=== PATIENT | female | born 1935 | race African-American/Black ===

== ENCOUNTER 2016-09-09 10:44 | Emergency (ER) | payer MEDICARE, MEDICAID ==
[~2016-09-09] VITALS: Ht 165.1 cm; Wt 64.0 kg
[~2016-09-09 10:44] MED LIST: ASPI-1035 PO
[2016-09-09] MEDS ORDERED: KETOROLAC 60MG/2ML VIAL IM ONE (11:45)
[2016-09-09 14:14] VITALS: BP 163/73
== END 2016-09-09 14:15 | disposition home or self-care (01) ==
LOC: ER 11:05
DX: G62.9 Polyneuropathy, unspecified (principal); G89.29 Other chronic pain; E11.9 Type 2 diabetes mellitus without complications; I10 Essential (primary) hypertension; M79.671 Pain in right foot; Z79.82 Long term (current) use of aspirin
CPT/HCPCS: 99283; J1885

== ENCOUNTER 2016-09-22 14:46 | Observation (INO) | payer MEDICARE, MEDICAID ==
[~2016-09-22] VITALS: Ht 165.1 cm; Wt 48.5 kg
[2016-09-22] MEDS ORDERED: ASPIRIN 81MG TABLET PO ONE (16:15)
[2016-09-22 16:51] LABS: BASOPHILS % 0.2 % (0.0-2.0); EOSINOPHILS % 0.2 % (0.0-5.0); HEMATOCRIT. 34.9 % (36.0-48.0); HEMOGLOBIN. 11.5 g/dL (12.0-16.0); LYMPHOCYTES % 8.3 % (20.0-50.0); MEAN CORPUSCULAR HEMOGLOBIN 27.6 pg (28.0-32.0); MEAN CORPUSCULAR HGB CONC 32.8 g/dL (31.0-37.0); MEAN PLATELET VOLUME 9.5 fl (7.4-10.4); MONOCYTES % 7.2 % (2.0-8.0); NEUTROPHILS % 84.1 % (40.0-76.0); PLATELET 184 x1000/uL (130-400); RED BLOOD CELL COUNT 4.15 mill/uL (4.2-5.4); RED CELL DISTRIBUTION WIDTH 13.8 % (11.6-14.6); WHITE BLOOD COUNT 15.4 x1000/uL (4.5-11.0)
[2016-09-22 16:52] LABS: INR 1.1; PROTHROMBIN TIME 11.8 sec
[2016-09-22 16:53] LABS: ANION GAP 16; CALCIUM 8.7 mg/dL (8.5-10.1); CARBON DIOXIDE 25 mEq/L (21-32); CHLORIDE 103 mEq/L (98-107); INDEX HEMOLYSI 1 (1-3); INDEX ICTERIC 1 (1-4); INDEX LIPEMIC 1 (1-3); UREA NITROGEN BLOOD 21 mg/dL (7-21)
[2016-09-22 17:00] LABS: ALANINE AMINOTRANSFERASE 24 IU/L (13-61); TROPONIN I < 0.02 ng/mL (0.00-0.04); eGFR > 60 mL/min (>60)
[2016-09-22 17:15] LABS: NT PRO B-TYPE NATRIURETIC PEP 149 pg/mL (5-125)
[2016-09-22 22:00] VITALS: BP 157/90
[2016-09-22] MEDS ORDERED: TRAM50TA3 PO (23:15)
[2016-09-22] MEDS ORDERED: BENA40TA3 PO (23:15)
[2016-09-22] MEDS ORDERED: VALS160T2 PO (23:15)
[2016-09-22] MEDS ORDERED: TIMO15DR12 EACHEYE (23:15)
[2016-09-22] MEDS ORDERED: AMLO10TA80 PO (23:15)
[2016-09-22] MEDS ORDERED: ATOR20TA65 PO (23:15)
[2016-09-22] MEDS ORDERED: METF850T2 PO (23:15)
[2016-09-22] MEDS ORDERED: CLON0.2T PO (23:15)
[2016-09-22] MEDS ORDERED: PREG50CA PO (23:15)
[2016-09-22] MEDS ORDERED: LATA2.5D2 EACHEYE (23:15)
[2016-09-22] MEDS ORDERED: OXYC-100 PO (23:15)
[2016-09-22] MEDS ORDERED: DEXTROSE 50% WATER 50ML SYRINGE IV PRN (23:30)
[2016-09-22] MEDS ORDERED: TRAMADOL 50MG TABLET PO PRN (23:30)
[2016-09-22] MEDS: OXYCODONE HCL/ACETAMINOPHEN 5/325MG TABLET PO PRN (23:54)
[2016-09-23 01:04] LABS: CREATINE KINASE 51 IU/L (26-192); CREATINE KINASE MB FRACTION 1.3 ng/mL (0.5-3.6); INDEX HEMOLYSI 1 (1-3); TROPONIN I < 0.02 ng/mL (0.00-0.04)
[2016-09-23] MEDS ORDERED: LATANOPROST 0.005% OPHTH DROPS 2.5ML EACHEYE SCH ×2 (01:15→21:00)
[2016-09-23] MEDS ORDERED: CEFTRIAXONE 1 G PREMIX 50 ML IV SCH (02:00)
[2016-09-23 02:19] LABS: CLARITY URINE CLEAR (CLEAR); COLOR URINE YELLOW (YELLOW); GLUCOSE URINE 2+ (NEGATIVE); KETONES URINE NEGATIVE (NEGATIVE); LEUKOCYTE ESTERASE URINE NEGATIVE (NEGATIVE); NITRITE URINE NEGATIVE (NEGATIVE); OCCULT BLOOD URINE NEGATIVE (NEGATIVE); PROTEIN URINE NEGATIVE (NEGATIVE)
[2016-09-23] MEDS ORDERED: MORPHINE SULFATE 2 MG/ML CPJ (NOT FOR IM USE) IV PRN (03:15)
[2016-09-23 03:20] VITALS: BP 162/102
[2016-09-23] MEDS: CLONIDINE 0.2MG TABLET PO PRN ×2 (03:23→14:20)
[2016-09-23 04:02] LABS: SQUAMOUS EPITHELIAL CELL URINE NONE SEEN /lpf (RARE/1+)
[2016-09-23 04:04] LABS: WBC URINE 0-2 /hpf (0-2)
[2016-09-23 04:05] LABS: BACTERIA URINE NONE SEEN; RBC URINE NONE SEEN /hpf (0-2)
[2016-09-23 06:17] LABS: BASOPHILS % 0.3 % (0.0-2.0); EOSINOPHILS % 1.7 % (0.0-5.0); HEMATOCRIT. 32.1 % (36.0-48.0); HEMOGLOBIN. 10.8 g/dL (12.0-16.0); LYMPHOCYTES % 27.2 % (20.0-50.0); MEAN CORPUSCULAR HEMOGLOBIN 28.1 pg (28.0-32.0); MEAN CORPUSCULAR HGB CONC 33.6 g/dL (31.0-37.0); MEAN CORPUSCULAR VOLUME 83.8 fL (81.0-99.0); MEAN PLATELET VOLUME 9.2 fl (7.4-10.4); MONOCYTES % 8.6 % (2.0-8.0); NEUTROPHILS % 62.2 % (40.0-76.0); PLATELET 160 x1000/uL (130-400); RED BLOOD CELL COUNT 3.83 mill/uL (4.2-5.4); RED CELL DISTRIBUTION WIDTH 13.8 % (11.6-14.6); WHITE BLOOD COUNT 9.4 x1000/uL (4.5-11.0)
[2016-09-23] MEDS: BLOOD SUGAR DIAGNOSTIC STRIP TEST SCH ×2 (06:32→12:27)
[2016-09-23] MEDS: INSULIN LISPRO 100 UNITS/ML SUBCUT SCH ×2 (06:37→12:15)
[2016-09-23 07:47] LABS: ALANINE AMINOTRANSFERASE 19 IU/L (13-61); ALBUMIN 3.5 g/dL (3.4-5.0); ANION GAP 11; CALCIUM 8.6 mg/dL (8.5-10.1); CARBON DIOXIDE 29 mEq/L (21-32); CHLORIDE 104 mEq/L (98-107); HDL CHOLESTEROL 62 mg/dL (40-59); INDEX HEMOLYSI 1 (1-3); INDEX ICTERIC 1 (1-4); INDEX LIPEMIC 1 (1-3); LDL CHOLESTEROL 40 mg/dL (5-100); TRIGLYCERIDE 83 mg/dL (0-150); UREA NITROGEN BLOOD 18 mg/dL (7-21); eGFR > 60 mL/min (>60)
[2016-09-23 08:00] VITALS: BP 116/81
[2016-09-23] MEDS ORDERED: ENOXAPARIN 40MG/0.4ML SYR SUBCUT SCH (09:00)
[2016-09-23] MEDS ORDERED: TIMOLOL MALEATE 0.5% OPHTH DROPS 5ML EACHEYE SCH (09:00)
[2016-09-23] MEDS: LOSARTAN POTASSIUM 100 MG TABLET PO SCH ×2 (09:00→14:20)
[2016-09-23] MEDS ORDERED: AMLODIPINE 10MG TABLET PO SCH (09:00)
[2016-09-23] MEDS ORDERED: ASPIRIN 81MG EC TABLET PO SCH (09:00)
[2016-09-23] MEDS ORDERED: METFORMIN HCL 850MG TABLET PO SCH (09:00)
[2016-09-23] MEDS ORDERED: PREGABALIN 50 MG CAPSULE PO SCH (09:00)
[2016-09-23] MEDS: OXYCODONE HCL/ACETAMINOPHEN 5/325MG TABLET PO PRN (09:50)
[2016-09-23 09:57] LABS: CREATINE KINASE 40 IU/L (26-192); CREATINE KINASE MB FRACTION 1.1 ng/mL (0.5-3.6); INDEX HEMOLYSI 1 (1-3); TROPONIN I < 0.02 ng/mL (0.00-0.04)
[2016-09-23 12:00] VITALS: BP 157/71
[2016-09-23 14:19] VITALS: BP 169/77
[2016-09-23 14:55] VITALS: BP 157/71
[2016-09-23] MEDS ORDERED: ATORVASTATIN CALCIUM 20MG TABLET PO SCH (17:00)
== END 2016-09-23 17:05 | disposition home or self-care (01) ==
LOC: ER 15:27 → INTOOBSV 18:26 → 5WST 18:26
PROVIDERS: ADMIT Internal Medicine; ATTEND Internal Medicine
DX: R07.89 Other chest pain (principal); I10 Essential (primary) hypertension; E10.42 Type 1 diabetes mellitus with diabetic polyneuropathy; E10.65 Type 1 diabetes mellitus with hyperglycemia; E78.00 Pure hypercholesterolemia, unspecified; E78.5 Hyperlipidemia, unspecified; H40.9 Unspecified glaucoma
CPT/HCPCS: 36415; 71010; 80053; 80061; 81001; 82550; 82553; 82962; 83880; 84484; 85025; 85610; 87040; 87086; 93005; 93306; 96365; 96372; 96375; 99285; G0378; J0696; J1650; J1815; J2270; J7050

== ENCOUNTER 2016-10-27 20:15 | Emergency (ER) | payer MEDICARE, MEDICAID ==
[~2016-10-27] VITALS: Ht 162.6 cm; Wt 52.0 kg
[~2016-10-27 20:15] MED LIST changes: +AMLO10TA80 PO; -ASPI-1035 PO; +ASPI-1159 PO; +ATOR20TA65 PO; +BENA40TA3 PO; +CLON0.2T PO; +LATA2.5D2 EACHEYE; +METF850T2 PO; +OXYC-100 PO; +PREG50CA PO; +TIMO15DR12 EACHEYE; +TRAM50TA3 PO; +VALS160T2 PO
[2016-10-27] MEDS ORDERED: KETOROLAC 60MG/2ML VIAL IM ONE (22:30)
[2016-10-27 22:50] LABS: BASOPHILS % 0.7 % (0.0-2.0); EOSINOPHILS % 1.4 % (0.0-5.0); HEMATOCRIT. 38.5 % (36.0-48.0); HEMOGLOBIN. 12.8 g/dL (12.0-16.0); LYMPHOCYTES % 32.7 % (20.0-50.0); MEAN CORPUSCULAR HEMOGLOBIN 28.3 pg (28.0-32.0); MEAN CORPUSCULAR VOLUME 85.2 fL (81.0-99.0); MEAN PLATELET VOLUME 9.1 fl (7.4-10.4); MONOCYTES % 7.7 % (2.0-8.0); NEUTROPHILS % 57.5 % (40.0-76.0); PLATELET 225 x1000/uL (130-400); RED BLOOD CELL COUNT 4.51 mill/uL (4.2-5.4); RED CELL DISTRIBUTION WIDTH 14.2 % (11.6-14.6)
[2016-10-27 22:53] LABS: CHLORIDE 102 mEq/L (98-107)
[2016-10-27 23:03] LABS: CARBON DIOXIDE 31 mEq/L (21-32)
[2016-10-28 02:30] VITALS: BP 185/65
== END 2016-10-28 02:30 | disposition home or self-care (01) ==
LOC: ER 20:49
DX: I10 Essential (primary) hypertension (principal); G62.9 Polyneuropathy, unspecified; E11.9 Type 2 diabetes mellitus without complications; Z79.82 Long term (current) use of aspirin; Z79.899 Other long term (current) drug therapy
CPT/HCPCS: 36415; 80053; 85025; 96372; 99284; J1885

== ENCOUNTER 2016-12-08 20:09 | Emergency (ER) | payer MEDICARE, MEDICAID ==
[~2016-12-08] VITALS: Ht 162.6 cm; Wt 45.4 kg
[2016-12-08] MEDS ORDERED: KETOROLAC 60MG/2ML VIAL IM ONE (20:30)
[2016-12-08 21:20] VITALS: BP 142/62
== END 2016-12-08 21:29 | disposition home or self-care (01) ==
LOC: ER 20:24
DX: E11.42 Type 2 diabetes mellitus with diabetic polyneuropathy (principal); I10 Essential (primary) hypertension; Z79.82 Long term (current) use of aspirin
CPT/HCPCS: 82962; 96372; 99283; J1885

== ENCOUNTER 2016-12-12 10:31 | Emergency (ER) | payer MEDICARE, MEDICAID ==
[~2016-12-12] VITALS: Ht 170.2 cm; Wt 55.0 kg
[2016-12-12] MEDS ORDERED: KETOROLAC 60MG/2ML VIAL IM ONE (11:15)
[2016-12-12 12:01] VITALS: BP 134/28
== END 2016-12-12 12:01 | disposition home or self-care (01) ==
LOC: ER 11:04
DX: E11.40 Type 2 diabetes mellitus with diabetic neuropathy, unspecified (principal); G89.29 Other chronic pain; I10 Essential (primary) hypertension
CPT/HCPCS: 96372; 99283; J1885

== ENCOUNTER 2016-12-12 12:49 | Emergency (ER) | payer MEDICARE, MEDICAID ==
[~2016-12-12] VITALS: Ht 165.1 cm; Wt 54.0 kg
[2016-12-12 13:05] VITALS: BP 171/81
== END 2016-12-12 17:26 | disposition left against medical advice (07) ==
LOC: ER 17:13
DX: Z53.21 Procedure and treatment not carried out due to patient leaving prior to being seen by health care provider (principal)

== ENCOUNTER 2016-12-14 19:35 | Emergency (ER) | payer MEDICARE, MEDICAID ==
[~2016-12-14] VITALS: Ht 167.6 cm; Wt 54.0 kg
[2016-12-14] MEDS ORDERED: KETOROLAC 15MG/ML VIAL IM ONE (20:15)
[2016-12-14] MEDS ORDERED: IBUPROFEN 600MG TABLET PO ONE (20:15)
[2016-12-14 20:36] VITALS: BP 159/42
== END 2016-12-14 20:51 | disposition home or self-care (01) ==
LOC: ER 20:14
DX: E11.40 Type 2 diabetes mellitus with diabetic neuropathy, unspecified (principal); I10 Essential (primary) hypertension; Z79.82 Long term (current) use of aspirin
CPT/HCPCS: 96372; 99283; J1885

== ENCOUNTER 2016-12-15 09:33 | Emergency (ER) | payer MEDICARE, MEDICAID ==
[~2016-12-15] VITALS: Ht 160 cm; Wt 40.0 kg
[2016-12-15] MEDS ORDERED: OXYCODONE HCL/ACETAMINOPHEN 5/325MG TABLET PO ONE ×2 (10:30→15:45)
[2016-12-15] MEDS ORDERED: KETOROLAC 15MG/ML VIAL IV ONE (12:15)
[2016-12-15 15:59] VITALS: BP 168/90
== END 2016-12-15 18:23 | disposition home or self-care (01) ==
LOC: ER 10:08
DX: E11.42 Type 2 diabetes mellitus with diabetic polyneuropathy (principal); G89.29 Other chronic pain; M79.672 Pain in left foot; M79.671 Pain in right foot
CPT/HCPCS: 96374; 99284; J1885

== ENCOUNTER 2016-12-25 12:39 | Emergency (ER) | payer MEDICARE, MEDICAID ==
[~2016-12-25] VITALS: Ht 165.1 cm; Wt 70.0 kg
[2016-12-25] MEDS ORDERED: TRAMADOL 50MG TABLET PO ONE (15:00)
[2016-12-25 16:00] VITALS: BP 155/66
== END 2016-12-25 16:20 | disposition home or self-care (01) ==
LOC: ER 13:01
DX: G62.9 Polyneuropathy, unspecified (principal); I10 Essential (primary) hypertension; E78.00 Pure hypercholesterolemia, unspecified; E11.9 Type 2 diabetes mellitus without complications
CPT/HCPCS: 99283

== ENCOUNTER 2017-01-16 22:59 | Emergency (ER) | payer MEDICARE, MEDICAID ==
[~2017-01-16] VITALS: Ht 162.6 cm; Wt 43.0 kg
[2017-01-17] MEDS ORDERED: TRAMADOL 50MG TABLET PO ONE ×2 (00:45→06:45)
[2017-01-17] MEDS ORDERED: KETOROLAC 60MG/2ML VIAL IM ONE (00:45)
[2017-01-17 11:22] VITALS: BP 160/67
== END 2017-01-17 14:07 | disposition home or self-care (01) ==
LOC: ER 01-17 00:06
DX: E11.40 Type 2 diabetes mellitus with diabetic neuropathy, unspecified (principal); I10 Essential (primary) hypertension; Z79.82 Long term (current) use of aspirin
CPT/HCPCS: 96372; 99283; J1885

== ENCOUNTER 2017-01-18 13:21 | Emergency (ER) | payer MEDICARE, MEDICAID ==
[~2017-01-18] VITALS: Ht 160 cm; Wt 50.0 kg
[2017-01-18] MEDS ORDERED: SODIUM CHLORIDE 0.9% 10ML VIAL ONE (14:20)
[2017-01-18] MEDS ORDERED: IOHEXOL-300 100 ML BOTTLE ONE (14:20)
[2017-01-18] MEDS ORDERED: SODIUM CHLORIDE 0.9% 1,000 ML IV ONE (16:04)
[2017-01-18 16:30] LABS: CHLORIDE 96 mEq/L (98-107)
[2017-01-18 16:34] LABS: CARBON DIOXIDE 23 mEq/L (21-32)
[2017-01-18 16:35] LABS: HEMATOCRIT. 35.9 % (36.0-48.0); HEMOGLOBIN. 11.9 g/dL (12.0-16.0); MEAN CORPUSCULAR VOLUME 84.8 fL (81.0-99.0); PLATELET 194 x1000/uL (130-400); RED BLOOD CELL COUNT 4.24 mill/uL (4.2-5.4); RED CELL DISTRIBUTION WIDTH 13.5 % (11.6-14.6)
[2017-01-18 16:38] LABS: INR 1.1; PROTHROMBIN TIME 11.6 sec (9.4-11.6)
[2017-01-18 17:14] LABS: CLARITY URINE CLEAR (CLEAR); COLOR URINE YELLOW (YELLOW); GLUCOSE URINE 1+ (NEGATIVE); KETONES URINE 2+ (NEGATIVE); LEUKOCYTE ESTERASE URINE NEGATIVE (NEGATIVE); NITRITE URINE NEGATIVE (NEGATIVE); OCCULT BLOOD URINE NEGATIVE (NEGATIVE); PH URINE 6.5 (4.5-8.0); PROTEIN URINE TRACE (NEGATIVE); SPECIFIC GRAVITY URINE 1.013 (1.005-1.030); UROBILINOGEN URINE 0.2 E.U./dL (0.2-1.0)
[2017-01-18 17:17] LABS: PLATELET ESTIMATE NORMAL
[2017-01-18] MEDS ORDERED: POTASSIUM CHLORIDE 20MEQ TABLET SR PO ONE (20:30)
[2017-01-19 02:05] VITALS: BP 120/68
== END 2017-01-19 02:06 | disposition home or self-care (01) ==
LOC: ER 13:35
DX: R10.30 Lower abdominal pain, unspecified (principal); I10 Essential (primary) hypertension; E11.9 Type 2 diabetes mellitus without complications; Z79.82 Long term (current) use of aspirin
CPT/HCPCS: 36415; 74177; 80053; 81001; 83690; 85025; 85610; 96360; 96361; 99285; A4216; Q9967; J7030

== ENCOUNTER 2017-01-23 07:52 | Inpatient (IN) | payer MEDICARE, MEDICAID ==
[~2017-01-23] VITALS: Ht 170.2 cm; Wt 43.1 kg
[2017-01-23] MEDS ORDERED: ONDANSETRON HCL 4MG/2ML VIAL IV STA (08:07)
[2017-01-23] MEDS ORDERED: MORPHINE SULFATE 4 MG/ML CPJ (NOT FOR IM USE) IV STA (08:07)
[2017-01-23] MEDS ORDERED: SODIUM CHLORIDE 0.9% 1,000 ML IV ONE (08:07)
[2017-01-23 08:32] LABS: PROTHROMBIN TIME 10.7 sec (9.4-11.6)
[2017-01-23 08:36] LABS: CARBON DIOXIDE 29 mEq/L (21-32); CHLORIDE 97 mEq/L (98-107)
[2017-01-23 08:41] LABS: BASOPHILS % 0.3 % (0.0-2.0); EOSINOPHILS % 0.9 % (0.0-5.0); HEMATOCRIT. 36.5 % (36.0-48.0); HEMOGLOBIN. 12.4 g/dL (12.0-16.0); LYMPHOCYTES % 20.4 % (20.0-50.0); MEAN CORPUSCULAR HEMOGLOBIN 28.7 pg (28.0-32.0); MEAN CORPUSCULAR VOLUME 84.5 fL (81.0-99.0); MEAN PLATELET VOLUME 9.3 fl (7.4-10.4); MONOCYTES % 8.6 % (2.0-8.0); NEUTROPHILS % 69.8 % (40.0-76.0); PLATELET 221 x1000/uL (130-400); RED BLOOD CELL COUNT 4.32 mill/uL (4.2-5.4); RED CELL DISTRIBUTION WIDTH 13.5 % (11.6-14.6)
[2017-01-23 08:43] LABS: TROPONIN I < 0.02 ng/mL (0.00-0.04)
[2017-01-23 09:22] LABS: GLUCOSE URINE TRACE (NEGATIVE); KETONES URINE NEGATIVE (NEGATIVE); LEUKOCYTE ESTERASE URINE 3+ (NEGATIVE); NITRITE URINE POSITIVE (NEGATIVE); OCCULT BLOOD URINE 3+ (NEGATIVE); PROTEIN URINE TRACE (NEGATIVE); SPECIFIC GRAVITY URINE 1.008 (1.005-1.030); UROBILINOGEN URINE 0.2 E.U./dL (0.2-1.0)
[2017-01-23 09:30] LABS: CLARITY URINE CLOUDY (CLEAR); COLOR URINE PALE YELLOW (YELLOW)
[2017-01-23] MEDS ORDERED: CEFTRIAXONE 1 G PREMIX 50 ML IV ONE (11:15)
[2017-01-23] MEDS ORDERED: SODIUM CHLORIDE 0.9% 10ML VIAL ONE (11:45)
[2017-01-23] MEDS ORDERED: IOHEXOL-300 100 ML BOTTLE ONE (11:45)
[2017-01-23] MEDS ORDERED: ACETAMINOPHEN 325MG TABLET PO PRN (14:15)
[2017-01-23] MEDS ORDERED: ONDANSETRON HCL 4MG/2ML VIAL IV PRN (14:15)
[2017-01-23] MEDS ORDERED: IPRATROPIUM/ALBUTEROL 0.5-3(2.5)MG/3ML NEB INH PRN (14:15)
[2017-01-23] MEDS ORDERED: CLONIDINE 0.1MG TABLET PO PRN (14:15)
[2017-01-23 16:35] VITALS: BP 150/58
[2017-01-23 16:46] LABS: CARBON DIOXIDE 31 mEq/L (21-32); CHLORIDE 101 mEq/L (98-107)
[2017-01-23] MEDS ORDERED: ENOXAPARIN 30MG/0.3ML SYR SUBCUT SCH ×2 (17:00→22:30)
[2017-01-23] MEDS ORDERED: SODIUM CHLORIDE 0.45% 1,000 ML IV SCH (17:00)
[2017-01-23] MEDS ORDERED: ROCEPHIN IVPB XX SCH (17:15)
[2017-01-23 20:00] VITALS: BP_SYST 166; BP_SYST 167; BP_DIAS 57; BP_DIAS 74
[2017-01-23] MEDS: HYDROCODONE/ACETAMINOPHEN 5/325MG TABLET PO PRN (21:27)
[2017-01-24] VITALS (7 sets, daily range): BP systolic 137–179; BP diastolic 47–65
[2017-01-24] MEDS: SODIUM CHLORIDE 0.45% 1,000 ML IV SCH ×2 (00:07→11:50)
[2017-01-24 01:29] LABS: CREATINE KINASE 27 IU/L (26-192)
[2017-01-24 01:30] LABS: TROPONIN I < 0.02 ng/mL (0.00-0.04)
[2017-01-24] MEDS: HYDROCODONE/ACETAMINOPHEN 5/325MG TABLET PO PRN ×4 (01:37→20:25)
[2017-01-24] MEDS ORDERED: DEXTROSE 50% WATER 50ML SYRINGE IV PRN (07:15)
[2017-01-24] MEDS: BLOOD SUGAR DIAGNOSTIC STRIP TEST SCH ×3 (07:20→17:20)
[2017-01-24] MEDS: INSULIN LISPRO 100 UNITS/ML SUBCUT SCH ×3 (08:59→19:01)
[2017-01-24 09:59] LABS: BASOPHILS % 0.4 % (0.0-2.0); EOSINOPHILS % 1.2 % (0.0-5.0); HEMATOCRIT. 30.8 % (36.0-48.0); HEMOGLOBIN. 10.4 g/dL (12.0-16.0); LYMPHOCYTES % 21.1 % (20.0-50.0); MEAN CORPUSCULAR HEMOGLOBIN 28.6 pg (28.0-32.0); MEAN CORPUSCULAR VOLUME 84.4 fL (81.0-99.0); MEAN PLATELET VOLUME 8.8 fl (7.4-10.4); MONOCYTES % 7.4 % (2.0-8.0); NEUTROPHILS % 69.9 % (40.0-76.0); PLATELET 191 x1000/uL (130-400); RED BLOOD CELL COUNT 3.65 mill/uL (4.2-5.4); RED CELL DISTRIBUTION WIDTH 13.4 % (11.6-14.6)
[2017-01-24 10:34] LABS: T4 FREE 1.22 ng/dL (0.76-1.46); TROPONIN I 0.02 ng/mL (0.00-0.04)
[2017-01-24] MEDS ORDERED: CEFTRIAXONE 1 G PREMIX 50 ML IV SCH (11:00)
== END 2017-01-24 22:00 | disposition home health service (06) | DRG 690 ==
LOC: ER 09:31 → CANRESERV 10:05 → ENRESERV 10:05 → 6EST 11:32 → EDBEDREQSVC 11:34 → EDBEDREQTM 11:34 → EDBEDREQ 11:34 → ENRESERV 15:26 → CANBEDREQ 16:14
PROVIDERS: ADMIT Internal Medicine; ATTEND Internal Medicine
DX: N39.0 Urinary tract infection, site not specified (principal); F03.90 Unspecified dementia, unspecified severity, without behavioral disturbance, psychotic disturbance, mood disturbance, and anxiety; E11.9 Type 2 diabetes mellitus without complications; D64.9 Anemia, unspecified; I10 Essential (primary) hypertension; H40.9 Unspecified glaucoma; Z79.84 Long term (current) use of oral hypoglycemic drugs; Z79.82 Long term (current) use of aspirin; Z79.899 Other long term (current) drug therapy
CPT/HCPCS: 36415; 51702; 71010; 74177; 80048; 80053; 80061; 81001; 82550; 82962; 83605; 83690; 83880; 84439; 84443; 84484; 85025; 85610; 87040; 87077; 87086; 87186; 93005; 96361; 96365; 96375; 97162; 97530; 99285; A4216; C1893; J0696; J1650; J1815; J2270; J2405; J7030; Q9967; A4315

== ENCOUNTER 2017-01-25 22:47 | Emergency (ER) | payer MEDICARE, MEDICAID ==
[~2017-01-25] VITALS: Ht 154.9 cm; Wt 38.0 kg
[2017-01-26] MEDS ORDERED: HYDROCODONE/ACETAMINOPHEN 5/325MG TABLET PO ONE (00:30)
[2017-01-26 05:04] VITALS: BP 138/65
== END 2017-01-26 11:25 | disposition home or self-care (01) ==
LOC: ER 23:00
DX: E11.40 Type 2 diabetes mellitus with diabetic neuropathy, unspecified (principal); F03.90 Unspecified dementia, unspecified severity, without behavioral disturbance, psychotic disturbance, mood disturbance, and anxiety
CPT/HCPCS: 99283

== ENCOUNTER 2017-02-03 00:08 | Emergency (ER) | payer MEDICARE, MEDICAID ==
[~2017-02-03] VITALS: Ht 162.6 cm; Wt 46.0 kg
[2017-02-03] MEDS ORDERED: ONDANSETRON HCL 4MG/2ML VIAL IV STA (01:00)
[2017-02-03] MEDS ORDERED: KETOROLAC 30MG/ML VIAL IV STA (01:00)
[2017-02-03] MEDS ORDERED: SODIUM CHLORIDE 0.9% 1,000 ML IV ONE (01:00)
[2017-02-03] MEDS ORDERED: TRAMADOL 50MG TABLET PO ONE (01:15)
[2017-02-03 01:27] LABS: BASOPHILS % 0.2 % (0.0-2.0); EOSINOPHILS % 0.1 % (0.0-5.0); HEMATOCRIT. 38.4 % (36.0-48.0); HEMOGLOBIN. 12.8 g/dL (12.0-16.0); LYMPHOCYTES % 13.4 % (20.0-50.0); MEAN CORPUSCULAR HEMOGLOBIN 28.4 pg (28.0-32.0); MEAN PLATELET VOLUME 8.4 fl (7.4-10.4); MONOCYTES % 6.2 % (2.0-8.0); NEUTROPHILS % 80.1 % (40.0-76.0); PLATELET 269 x1000/uL (130-400); RED BLOOD CELL COUNT 4.52 mill/uL (4.2-5.4); RED CELL DISTRIBUTION WIDTH 13.8 % (11.6-14.6)
[2017-02-03 01:30] LABS: CHLORIDE 95 mEq/L (98-107)
[2017-02-03 01:32] LABS: PROTHROMBIN TIME 10.4 sec (9.4-11.6)
[2017-02-03 01:39] LABS: CARBON DIOXIDE 31 mEq/L (21-32)
[2017-02-03 03:31] LABS: CLARITY URINE CLOUDY (CLEAR); COLOR URINE YELLOW (YELLOW); GLUCOSE URINE 3+ (NEGATIVE); KETONES URINE 1+ (NEGATIVE); LEUKOCYTE ESTERASE URINE NEGATIVE (NEGATIVE); NITRITE URINE NEGATIVE (NEGATIVE); OCCULT BLOOD URINE NEGATIVE (NEGATIVE); PROTEIN URINE NEGATIVE (NEGATIVE); SPECIFIC GRAVITY URINE 1.026 (1.005-1.030)
[2017-02-03 07:45] VITALS: BP 134/53
== END 2017-02-03 08:18 | disposition home or self-care (01) ==
LOC: ER 00:15
DX: M79.605 Pain in left leg (principal); M79.604 Pain in right leg; G89.29 Other chronic pain; K59.00 Constipation, unspecified; E11.9 Type 2 diabetes mellitus without complications; I10 Essential (primary) hypertension; D72.829 Elevated white blood cell count, unspecified; Z79.82 Long term (current) use of aspirin
CPT/HCPCS: 36415; 80053; 81001; 82962; 85025; 85610; 96361; 96374; 96375; 99285; J1885; J2405; J7030

== ENCOUNTER 2017-04-21 23:37 | Emergency (ER) | payer MEDICARE, MEDICAID ==
[~2017-04-21] VITALS: Ht 167.6 cm; Wt 59.0 kg
[2017-04-22 00:34] LABS: BASOPHILS % 0.5 % (0.0-2.0); EOSINOPHILS % 2.4 % (0.0-5.0); HEMATOCRIT. 32.7 % (36.0-48.0); HEMOGLOBIN. 10.9 g/dL (12.0-16.0); LYMPHOCYTES % 16.9 % (20.0-50.0); MEAN CORPUSCULAR HEMOGLOBIN 29.7 pg (28.0-32.0); MEAN PLATELET VOLUME 9.1 fl (7.4-10.4); MONOCYTES % 11.1 % (2.0-8.0); NEUTROPHILS % 69.1 % (40.0-76.0); PLATELET 196 x1000/uL (130-400); RED BLOOD CELL COUNT 3.68 mill/uL (4.2-5.4); RED CELL DISTRIBUTION WIDTH 14.9 % (11.6-14.6)
[2017-04-22 00:40] LABS: INR 1.1; PROTHROMBIN TIME 11.2 sec (9.4-11.6)
[2017-04-22 00:50] LABS: CARBON DIOXIDE 27 mEq/L (21-32); CHLORIDE 106 mEq/L (98-107); ETHANOL BLOOD < 10 mg/dL; TROPONIN I < 0.02 ng/mL (0.00-0.04)
[2017-04-22 02:48] LABS: CLARITY URINE CLEAR (CLEAR); COLOR URINE YELLOW (YELLOW); GLUCOSE URINE TRACE (NEGATIVE); KETONES URINE NEGATIVE (NEGATIVE); LEUKOCYTE ESTERASE URINE 1+ (NEGATIVE); NITRITE URINE POSITIVE (NEGATIVE); OCCULT BLOOD URINE NEGATIVE (NEGATIVE); PROTEIN URINE NEGATIVE (NEGATIVE); SPECIFIC GRAVITY URINE 1.014 (1.005-1.030); UROBILINOGEN URINE 0.2 E.U./dL (0.2-1.0)
[2017-04-22 02:59] LABS: *AMPHETAMINES SCREEN URINE NEGATIVE (NEGATIVE); *BARBITURATES SCREEN URINE NEGATIVE (NEGATIVE); *BENZODIAZEPINES SCREEN URINE NEGATIVE (NEGATIVE); *COCAINE SCREEN URINE NEGATIVE (NEGATIVE); CANNABINOID URINE SCREEN NEGATIVE (NEGATIVE); METHADONE URINE SCREEN NEGATIVE (NEGATIVE); OPIATES URINE SCREEN NEGATIVE (NEGATIVE); PHENCYCLIDINE URINE SCREEN NEGATIVE (NEGATIVE)
[2017-04-22] MEDS ORDERED: CEFTRIAXONE SODIUM 1 G/VIAL IM ONE (03:15)
[2017-04-22] MEDS ORDERED: CEFTRIAXONE 1 G PREMIX 50 ML IV ONE (03:30)
[2017-04-22] MEDS ORDERED: CLONIDINE 0.2MG TABLET PO ONE (04:45)
[2017-04-22 04:59] VITALS: BP 183/92
== END 2017-04-22 05:03 | disposition home or self-care (01) ==
LOC: ER 23:37
DX: S50.312A Abrasion of left elbow, initial encounter (principal); S50.311A Abrasion of right elbow, initial encounter; N39.0 Urinary tract infection, site not specified; I10 Essential (primary) hypertension; M25.551 Pain in right hip; Z79.82 Long term (current) use of aspirin; W18.30XA Fall on same level, unspecified, initial encounter; Y93.89 Activity, other specified; Y92.89 Other specified places as the place of occurrence of the external cause; Y99.8 Other external cause status
CPT/HCPCS: 36415; 70450; 71010; 73502; 80053; 80305; 81001; 84484; 85025; 85610; 93005; 96365; 99285; G0482; J0696

== ENCOUNTER 2017-12-14 16:21 | Inpatient (IN) | payer MEDICARE, MEDICAID ==
[~2017-12-14] VITALS: Ht 160 cm; Wt 42.2 kg
[~2017-12-14 16:21] MED LIST changes: -BENA40TA3 PO; +BENA40TA9 PO
[2017-12-14 17:36] LABS: BASOPHILS % 0.4 % (0.0-2.0); EOSINOPHILS % 1.7 % (0.0-5.0); HEMATOCRIT. 35.7 % (36.0-48.0); HEMOGLOBIN. 11.9 g/dL (12.0-16.0); MEAN CORPUSCULAR HEMOGLOBIN 29.2 pg (28.0-32.0); MEAN CORPUSCULAR VOLUME 87.6 fL (81.0-99.0); MEAN PLATELET VOLUME 9.7 fl (7.4-10.4); NEUTROPHILS % 71.9 % (40.0-76.0); PLATELET 179 x1000/uL (130-400); RED BLOOD CELL COUNT 4.08 mill/uL (4.2-5.4); RED CELL DISTRIBUTION WIDTH 13.8 % (11.6-14.6)
[2017-12-14 17:42] LABS: CHLORIDE 106 mEq/L (98-107); PROTHROMBIN TIME 10.9 sec (9.4-11.6)
[2017-12-14 18:50] LABS: CLARITY URINE CLEAR (CLEAR); COLOR URINE YELLOW (YELLOW); KETONES URINE NEGATIVE (NEGATIVE); LEUKOCYTE ESTERASE URINE NEGATIVE (NEGATIVE); NITRITE URINE NEGATIVE (NEGATIVE); OCCULT BLOOD URINE NEGATIVE (NEGATIVE); PROTEIN URINE NEGATIVE (NEGATIVE); SPECIFIC GRAVITY URINE 1.015 (1.005-1.030)
[2017-12-14] MEDS ORDERED: HYDROCODONE/ACETAMINOPHEN 5/325MG TABLET PO PRN (22:15)
[2017-12-14] MEDS ORDERED: HYDROCODONE/ACETAMINOPHEN 10/325MG TABLET PO PRN (22:15)
[2017-12-14] MEDS ORDERED: ACETAMINOPHEN 325MG TABLET PO PRN (22:15)
[2017-12-14] MEDS ORDERED: IPRATROPIUM/ALBUTEROL 0.5-3(2.5)MG/3ML NEB INH PRN (22:15)
[2017-12-14] MEDS ORDERED: DOCUSATE SODIUM 100MG CAPSULE PO PRN (22:15)
[2017-12-14] MEDS ORDERED: NA PHOS,M-B/NA PHOS,DI-BA ENEMA 118ML PR PRN (22:15)
[2017-12-14] MEDS ORDERED: ACETAMINOPHEN 650MG/20.3ML UDC GT PRN (22:15)
[2017-12-14] MEDS ORDERED: ACETAMINOPHEN 650MG SUPP PR PRN (22:15)
[2017-12-14] MEDS ORDERED: MAGNESIUM/ALUMINUM HYDROXIDE/SIMETHICONE 30ML UDC PO PRN (22:15)
[2017-12-14] MEDS ORDERED: GUAIFENESIN 200MG/10ML SUGAR FREE UDC PO PRN (22:15)
[2017-12-14] MEDS ORDERED: DIPHENHYDRAMINE 50MG/ML VIAL IV PRN (22:15)
[2017-12-14] MEDS ORDERED: DEXTROSE 50% WATER 50ML SYRINGE IV PRN (22:15)
[2017-12-14 23:40] VITALS: BP 188/67
[2017-12-15] MEDS: CLONIDINE 0.1MG TABLET PO PRN ×2 (00:05→17:36)
[2017-12-15] MEDS ORDERED: AMLODIPINE 10MG TABLET PO SCH (00:05)
[2017-12-15] MEDS ORDERED: ONDANSETRON HCL 4MG/2ML VIAL IV PRN (00:06)
[2017-12-15 01:19] VITALS: BP 188/67
[2017-12-15] MEDS ORDERED: LOSA50TA20 PO (02:14)
[2017-12-15] MEDS ORDERED: PREG50CA PO (02:14)
[2017-12-15] MEDS ORDERED: METF500T6 PO (02:14)
[2017-12-15] MEDS ORDERED: CLON0.1T PO (02:14)
[2017-12-15] MEDS ORDERED: TRAM50TA3 PO (02:14)
[2017-12-15] MEDS ORDERED: DOCU-138 PO (02:14)
[2017-12-15] MEDS ORDERED: PREG75CA PO ×2 (02:14)
[2017-12-15] MEDS ORDERED: ACET-2178 PO (02:14)
[2017-12-15] MEDS ORDERED: METO-539 PO (02:14)
[2017-12-15] MEDS ORDERED: ACET-2708 PO (02:14)
[2017-12-15] MEDS ORDERED: CRAN3875 PO (02:14)
[2017-12-15 04:00] VITALS: BP 150/48
[2017-12-15] MEDS: SODIUM CHLORIDE 0.9% INJ 3ML FLUSH IVF SCH ×3 (05:56→21:53)
[2017-12-15] MEDS: INSULIN LISPRO 100 UNITS/ML SUBCUT SCH ×4 (05:56→21:00)
[2017-12-15] MEDS: BLOOD SUGAR DIAGNOSTIC STRIP TEST SCH ×4 (05:56→21:53)
[2017-12-15 08:00] VITALS: BP 159/58
[2017-12-15 08:10] LABS: BASOPHILS % 0.3 % (0.0-2.0); EOSINOPHILS % 1.5 % (0.0-5.0); HEMATOCRIT. 35.6 % (36.0-48.0); HEMOGLOBIN. 12.1 g/dL (12.0-16.0); LYMPHOCYTES % 20.2 % (20.0-50.0); MEAN CORPUSCULAR HEMOGLOBIN 29.6 pg (28.0-32.0); MEAN CORPUSCULAR VOLUME 86.9 fL (81.0-99.0); MEAN PLATELET VOLUME 9.6 fl (7.4-10.4); MONOCYTES % 6.9 % (2.0-8.0); NEUTROPHILS % 71.1 % (40.0-76.0); PLATELET 165 x1000/uL (130-400); RED CELL DISTRIBUTION WIDTH 13.4 % (11.6-14.6)
[2017-12-15 08:26] LABS: CHLORIDE 105 mEq/L (98-107)
[2017-12-15 08:35] LABS: LDL CHOLESTEROL 62 mg/dL (5-100)
[2017-12-15 08:36] LABS: HDL CHOLESTEROL 56 mg/dL (40-59)
[2017-12-15] MEDS: AMLODIPINE 10MG TABLET PO SCH (09:26)
[2017-12-15] MEDS: PANTOPRAZOLE SODIUM 40 MG/VIAL IV SCH (09:26)
[2017-12-15 12:00] VITALS: BP 137/74
[2017-12-15 15:58] LABS: *AMPHETAMINES SCREEN URINE NEGATIVE (NEGATIVE); *BARBITURATES SCREEN URINE NEGATIVE (NEGATIVE); *BENZODIAZEPINES SCREEN URINE NEGATIVE (NEGATIVE)
[2017-12-15 15:59] LABS: *COCAINE SCREEN URINE NEGATIVE (NEGATIVE)
[2017-12-15 16:00] VITALS: BP 136/32
[2017-12-15 16:00] LABS: OPIATES URINE SCREEN NEGATIVE (NEGATIVE)
[2017-12-15 16:01] LABS: CANNABINOID URINE SCREEN NEGATIVE (NEGATIVE); METHADONE URINE SCREEN NEGATIVE (NEGATIVE); PHENCYCLIDINE URINE SCREEN NEGATIVE (NEGATIVE)
[2017-12-15] MEDS ORDERED: KCL 20MEQ/100ML PREMIX 100 ML IV NR (17:00)
[2017-12-15 20:00] VITALS: BP 188/77
[2017-12-16] VITALS (7 sets, daily range): BP systolic 147–179; BP diastolic 59–78
[2017-12-16] MEDS: CLONIDINE 0.1MG TABLET PO PRN ×2 (01:42→12:00)
[2017-12-16] MEDS: BLOOD SUGAR DIAGNOSTIC STRIP TEST SCH ×3 (06:39→17:33)
[2017-12-16] MEDS: SODIUM CHLORIDE 0.9% INJ 3ML FLUSH IVF SCH ×2 (06:39→17:26)
[2017-12-16] MEDS: INSULIN LISPRO 100 UNITS/ML SUBCUT SCH ×3 (06:39→17:15)
[2017-12-16] MEDS ORDERED: CLONIDINE 0.1MG TABLET PO SCH (09:30)
[2017-12-16] MEDS: AMLODIPINE 10MG TABLET PO SCH (09:36)
[2017-12-16] MEDS: PANTOPRAZOLE SODIUM 40 MG/VIAL IV SCH (09:36)
[2017-12-16] MEDS ORDERED: PREGABALIN 75MG CAPSULE PO SCH ×2 (13:00→17:00)
[2017-12-16] MEDS ORDERED: ATORVASTATIN CALCIUM 20MG TABLET PO SCH (17:00)
[2017-12-16 17:15] LABS: BASOPHILS % 0.4 % (0.0-2.0); EOSINOPHILS % 0.9 % (0.0-5.0); HEMATOCRIT. 35.4 % (36.0-48.0); HEMOGLOBIN. 11.9 g/dL (12.0-16.0); LYMPHOCYTES % 20.6 % (20.0-50.0); MEAN CORPUSCULAR HEMOGLOBIN 29.3 pg (28.0-32.0); MEAN CORPUSCULAR VOLUME 87.4 fL (81.0-99.0); MEAN PLATELET VOLUME 9.2 fl (7.4-10.4); MONOCYTES % 6.2 % (2.0-8.0); NEUTROPHILS % 71.9 % (40.0-76.0); PLATELET 168 x1000/uL (130-400); RED BLOOD CELL COUNT 4.05 mill/uL (4.2-5.4); RED CELL DISTRIBUTION WIDTH 13.6 % (11.6-14.6)
[2017-12-16] MEDS ORDERED: PHENAZOPYRIDINE HCL 100MG TABLET PO SCH ×2 (17:15)
[2017-12-16 17:40] LABS: CHLORIDE 103 mEq/L (98-107)
[2017-12-16 18:12] LABS: VITAMIN B12 SERUM 740 pg/mL (211-911)
[2017-12-16] MEDS ORDERED: LATANOPROST 0.005% OPHTH DROPS 2.5ML EACHEYE SCH (21:00)
[2017-12-17] MEDS ORDERED: FAMOTIDINE 20MG TABLET PO SCH (09:00)
== END 2017-12-16 20:58 | DRG 71 ==
LOC: ER 16:21 → 5WST 22:00 → ENRESERV 22:32 → CANRESERV 22:32 → EDBEDREQSVC 22:39 → ENRESERV 22:41
PROVIDERS: ADMIT Family Medicine; ATTEND Family Medicine
DX: G93.41 Metabolic encephalopathy (principal); E44.1 Mild protein-calorie malnutrition; Z68.1 Body mass index [BMI] 19.9 or less, adult; E78.5 Hyperlipidemia, unspecified; E87.6 Hypokalemia; F03.90 Unspecified dementia, unspecified severity, without behavioral disturbance, psychotic disturbance, mood disturbance, and anxiety; E11.40 Type 2 diabetes mellitus with diabetic neuropathy, unspecified; H40.9 Unspecified glaucoma; H91.90 Unspecified hearing loss, unspecified ear; I10 Essential (primary) hypertension; F60.89 Other specific personality disorders; K80.20 Calculus of gallbladder without cholecystitis without obstruction; R62.7 Adult failure to thrive; Z86.73 Personal history of transient ischemic attack (TIA), and cerebral infarction without residual deficits; Z91.81 History of falling; Z79.84 Long term (current) use of oral hypoglycemic drugs; Z87.11 Personal history of peptic ulcer disease
CPT/HCPCS: 36415; 70450; 71045; 74018; 76700; 80053; 80061; 80305; 81003; 82607; 82962; 83036; 84443; 85018; 85025; 85610; 87086; 92610; 93976; 97162; 99285; C9113; J1815; J3480; J7030; J7050; A4315

== ENCOUNTER 2018-07-17 16:25 | Inpatient (IN) | payer MEDICARE, MEDICAID ==
[~2018-07-17] VITALS: Ht 152.4 cm; Wt 39.9 kg
[~2018-07-17 16:25] MED LIST changes: +ACET-2178 PO; +ACET-2708 PO; -AMLO10TA80 PO; -BENA40TA9 PO; +CLON0.1T PO; -CLON0.2T PO; +CRAN3875 PO; +DOCU-138 PO; +LOSA50TA20 PO; +METF-414 PO; -METF850T2 PO; +METO-539 PO; -OXYC-100 PO; +PREG75CA PO; -VALS160T2 PO
[2018-07-17] MEDS ORDERED: ONDANSETRON HCL 4MG/2ML INJ IV STA (21:41)
[2018-07-17] MEDS ORDERED: MORPHINE SULFATE 4 MG/ML CPJ (NOT FOR IM USE) IV STA (21:41)
[2018-07-17] MEDS ORDERED: SODIUM CHLORIDE 0.9% 1,000 ML IV ONE (21:41)
[2018-07-17] MEDS ORDERED: VANCOMYCIN 1 G PREMIX 200 ML IV ONE (21:45)
[2018-07-17] MEDS ORDERED: PIPERACILLIN/TAZ 3.375G PREMIX 50 ML IV ONE (21:45)
[2018-07-17] MEDS ORDERED: LORAZEPAM 2MG/ML CPJ IV ONE (21:45)
[2018-07-17 22:18] LABS: BASOPHILS % 0.8 % (0.0-2.0); EOSINOPHILS % 1.7 % (0.0-5.0); HEMATOCRIT. 36.4 % (36.0-48.0); HEMOGLOBIN. 11.9 g/dL (12.0-16.0); LYMPHOCYTES % 27.5 % (20.0-50.0); MEAN CORPUSCULAR HEMOGLOBIN 28.7 pg (28.0-32.0); MEAN CORPUSCULAR VOLUME 87.6 fL (81.0-99.0); MEAN PLATELET VOLUME 8.3 fl (7.4-10.4); MONOCYTES % 9.4 % (2.0-8.0); NEUTROPHILS % 60.6 % (40.0-76.0); PLATELET 306 x1000/uL (130-400); RED BLOOD CELL COUNT 4.15 mill/uL (4.2-5.4); RED CELL DISTRIBUTION WIDTH 14.8 % (11.6-14.6)
[2018-07-17 22:22] LABS: CHLORIDE 105 mEq/L (98-107)
[2018-07-17 22:23] LABS: PARTIAL THROMBOPLASTIN TIME 30.1 sec (23.4-31.0); PROTHROMBIN TIME 10.5 sec (9.1-11.1)
[2018-07-18 02:54] LABS: CLARITY URINE CLOUDY (CLEAR); COLOR URINE YELLOW (YELLOW); KETONES URINE NEGATIVE (NEGATIVE); LEUKOCYTE ESTERASE URINE 3+ (NEGATIVE); NITRITE URINE NEGATIVE (NEGATIVE); OCCULT BLOOD URINE TRACE (NEGATIVE); PH URINE 7.5 (4.5-8.0); PROTEIN URINE 1+ (NEGATIVE); SPECIFIC GRAVITY URINE 1.012 (1.005-1.030); UROBILINOGEN URINE 0.2 E.U./dL (0.2-1.0)
[2018-07-18] MEDS ORDERED: FAMO-135 PO (04:40)
[2018-07-18] MEDS ORDERED: AMLO10TA80 MT (04:40)
[2018-07-18] MEDS ORDERED: INSU100I28 SQ (04:40)
[2018-07-18] MEDS ORDERED: XALAO EACHEYE (04:40)
[2018-07-18 08:00] VITALS: BP 163/63
[2018-07-18] MEDS ORDERED: DEXTROSE 50% WATER 50ML SYRINGE IV PRN (08:00)
[2018-07-18] MEDS: AMLODIPINE 5MG TABLET PO SCH (09:37)
[2018-07-18 12:00] VITALS: BP 152/64
[2018-07-18 12:01] VITALS: BP 138/61
[2018-07-18] MEDS: BLOOD SUGAR DIAGNOSTIC STRIP TEST SCH ×3 (12:41→20:49)
[2018-07-18] MEDS: INSULIN LISPRO 100 UNITS/ML SUBCUT SCH ×3 (13:08→21:06)
[2018-07-18] MEDS ORDERED: AMLODIPINE 10MG TABLET PO SCH (14:30)
[2018-07-18 16:00] VITALS: BP 158/86
[2018-07-18] MEDS: PREGABALIN 75MG CAPSULE PO SCH (17:04)
[2018-07-18] MEDS: PIPERACILLIN/TAZ 2.25G PREMIX 50 ML IV SCH ×2 (17:05→23:50)
[2018-07-18] MEDS: VANCOMYCIN 500 MG PREMIX 100 ML IV SCH (18:36)
[2018-07-18 20:00] VITALS: BP 183/75
[2018-07-18] MEDS: CLONIDINE 0.1MG TABLET PO PRN (20:12)
[2018-07-18] MEDS: ATORVASTATIN CALCIUM 20MG TABLET PO SCH (20:12)
[2018-07-18] MEDS ORDERED: LATANOPROST 0.005% OPHTH DROPS 2.5ML EACHEYE SCH (21:00)
[2018-07-18] MEDS: LATANOPROST 0.005% OPHTH DROPS 2.5ML EACHEYE SCH (21:00)
[2018-07-19] VITALS: BP 171/72
[2018-07-19] MEDS ORDERED: CLONIDINE 0.2MG TABLET PO PRN (00:45)
[2018-07-19] MEDS: CLONIDINE 0.1MG TABLET PO PRN (00:51)
[2018-07-19 04:00] VITALS: BP 112/51
[2018-07-19] MEDS: INSULIN LISPRO 100 UNITS/ML SUBCUT SCH ×4 (07:50→22:01)
[2018-07-19 08:00] VITALS: BP_SYST 114; BP_SYST 116; BP_DIAS 49; BP_DIAS 50
[2018-07-19] MEDS: BLOOD SUGAR DIAGNOSTIC STRIP TEST SCH ×4 (08:01→21:26)
[2018-07-19] MEDS: AMLODIPINE 5MG TABLET PO SCH (08:38)
[2018-07-19] MEDS: PIPERACILLIN/TAZ 2.25G PREMIX 50 ML IV SCH ×2 (08:38→17:30)
[2018-07-19] MEDS: LORAZEPAM 2MG/ML CPJ IV PRN (09:58)
[2018-07-19] MEDS ORDERED: IOHEXOL-300 100 ML BOTTLE ONE (11:37)
[2018-07-19 12:00] VITALS: BP 129/56
[2018-07-19] MEDS: VANCOMYCIN 500 MG PREMIX 100 ML IV SCH (12:14)
[2018-07-19] MEDS: PREGABALIN 75MG CAPSULE PO SCH ×2 (12:14→17:30)
[2018-07-19] MEDS ORDERED: LIDOCAINE HCL 1% 20ML VIAL (Pyxis) INJ ONE (13:03)
[2018-07-19] MEDS ORDERED: SODIUM BICARBONATE 4% (2.4MEQ) 5ML VIAL IV ONE (13:03)
[2018-07-19 14:54] LABS: CHLORIDE 103 mEq/L (98-107)
[2018-07-19 14:56] LABS: HEMATOCRIT 31.8 % (36.0-48.0); HEMOGLOBIN 10.5 g/dL (12.0-16.0); MEAN CORPUSCULAR HEMOGLOBIN 28.8 pg (28.0-32.0); MEAN CORPUSCULAR VOLUME 87.2 fL (81.0-99.0); PLATELET 282 x1000/uL (130-400); RED BLOOD CELL COUNT 3.65 mill/uL (4.2-5.4); RED CELL DISTRIBUTION WIDTH 14.3 % (11.6-14.6)
[2018-07-19 16:00] VITALS: BP 129/49
[2018-07-19 20:00] VITALS: BP 157/55
[2018-07-19] MEDS: LATANOPROST 0.005% OPHTH DROPS 2.5ML EACHEYE SCH (21:34)
[2018-07-19] MEDS: ATORVASTATIN CALCIUM 20MG TABLET PO SCH (21:34)
[2018-07-20] VITALS: BP 164/53
[2018-07-20] MEDS ORDERED: DEXT 5%/0.45% NACL 1000ML 1,000 ML IV SCH
[2018-07-20] MEDS: PIPERACILLIN/TAZ 2.25G PREMIX 50 ML IV SCH ×3 (03:27→16:44)
[2018-07-20 04:00] VITALS: BP 111/63
[2018-07-20 06:10] LABS: HEMATOCRIT 32.5 % (36.0-48.0); MEAN CORPUSCULAR VOLUME 85.7 fL (81.0-99.0); PLATELET 285 x1000/uL (130-400); RED BLOOD CELL COUNT 3.79 mill/uL (4.2-5.4); RED CELL DISTRIBUTION WIDTH 14.8 % (11.6-14.6)
[2018-07-20 07:07] LABS: CHLORIDE 105 mEq/L (98-107)
[2018-07-20] MEDS: BLOOD SUGAR DIAGNOSTIC STRIP TEST SCH ×4 (07:24→20:58)
[2018-07-20 07:28] LABS: LDL CHOLESTEROL 57 mg/dL (5-100)
[2018-07-20 07:29] LABS: HDL CHOLESTEROL 67 mg/dL (40-59); VANCOMYCIN TROUGH 5.4 ug/mL (5.0-10.0)
[2018-07-20] MEDS: VANCOMYCIN 500 MG PREMIX 100 ML IV SCH ×2 (07:39→21:07)
[2018-07-20] MEDS: CLONIDINE 0.1MG TABLET PO PRN ×2 (07:43→21:04)
[2018-07-20] MEDS: INSULIN LISPRO 100 UNITS/ML SUBCUT SCH ×4 (07:50→23:13)
[2018-07-20 08:00] VITALS: BP 130/61
[2018-07-20] MEDS: AMLODIPINE 5MG TABLET PO SCH (09:00)
[2018-07-20] MEDS ORDERED: POTASSIUM CHLORIDE INJ 40 MEQ in DEXT 5% WATER 500 ML IV SCH (10:00)
[2018-07-20] MEDS: LORAZEPAM 2MG/ML CPJ IV PRN (10:49)
[2018-07-20 11:51] VITALS: BP 126/50
[2018-07-20] MEDS: PREGABALIN 75MG CAPSULE PO SCH ×2 (13:00→17:00)
[2018-07-20] MEDS ORDERED: MIDAZOLAM HCL 2 MG/2 ML VIAL ONE (13:16)
[2018-07-20] MEDS ORDERED: FENTANYL CITRATE/PF 50MCG/ML 2ML VIAL ONE (13:16)
[2018-07-20 15:58] VITALS: BP 124/72
[2018-07-20 20:00] VITALS: BP 168/69
[2018-07-20] MEDS: ATORVASTATIN CALCIUM 20MG TABLET PO SCH (20:57)
[2018-07-20] MEDS: LATANOPROST 0.005% OPHTH DROPS 2.5ML EACHEYE SCH (20:58)
[2018-07-21] VITALS: BP 167/72
[2018-07-21] MEDS: PIPERACILLIN/TAZ 2.25G PREMIX 50 ML IV SCH ×2 (01:35→08:23)
[2018-07-21 04:00] VITALS: BP 140/56
[2018-07-21] MEDS: VANCOMYCIN 500 MG PREMIX 100 ML IV SCH (06:30)
[2018-07-21] MEDS: BLOOD SUGAR DIAGNOSTIC STRIP TEST SCH ×2 (06:31→12:29)
[2018-07-21 07:22] LABS: HEMATOCRIT 30.4 % (36.0-48.0); HEMOGLOBIN 10.3 g/dL (12.0-16.0); MEAN CORPUSCULAR VOLUME 85.9 fL (81.0-99.0); PLATELET 277 x1000/uL (130-400); RED BLOOD CELL COUNT 3.54 mill/uL (4.2-5.4); RED CELL DISTRIBUTION WIDTH 14.5 % (11.6-14.6)
[2018-07-21 08:00] VITALS: BP 102/67
[2018-07-21] MEDS: INSULIN LISPRO 100 UNITS/ML SUBCUT SCH ×2 (08:30→12:37)
[2018-07-21] MEDS: AMLODIPINE 5MG TABLET PO SCH (08:33)
[2018-07-21 08:59] LABS: CHLORIDE 107 mEq/L (98-107)
[2018-07-21 09:30] VITALS: BP 102/67
[2018-07-21] MEDS ORDERED: SULFAMETHOXAZOLE/TRIMETHOPRIM 400/80MG TAB PO SCH (11:00)
[2018-07-21 11:51] VITALS: BP 126/81
[2018-07-21] MEDS: PREGABALIN 75MG CAPSULE PO SCH (12:34)
[2018-07-21 13:16] VITALS: BP 126/81
== END 2018-07-21 15:30 | DRG 603 ==
LOC: ER 16:25 → 6EST 23:27 → EDBEDREQ 23:30 → EDBEDREQTM 23:30 → EDBEDREQSVC 23:30 → ENRESERV 07-18 02:26
PROVIDERS: ADMIT Internal Medicine; ATTEND Internal Medicine
PROC: 0XB Anatomical Regions, Upper Extremities, Excision (ICD-10-PCS; principal; 2018-07-20)
DX: L03.114 Cellulitis of left upper limb (principal); N39.0 Urinary tract infection, site not specified; D68.59 Other primary thrombophilia; S50.12XA Contusion of left forearm, initial encounter; F03.90 Unspecified dementia, unspecified severity, without behavioral disturbance, psychotic disturbance, mood disturbance, and anxiety; E11.9 Type 2 diabetes mellitus without complications; I10 Essential (primary) hypertension; L02.414 Cutaneous abscess of left upper limb; E87.6 Hypokalemia; X58.XXXA Exposure to other specified factors, initial encounter; D64.9 Anemia, unspecified; M79.7 Fibromyalgia; Z86.73 Personal history of transient ischemic attack (TIA), and cerebral infarction without residual deficits; Z79.82 Long term (current) use of aspirin; Z79.84 Long term (current) use of oral hypoglycemic drugs; Z79.899 Other long term (current) drug therapy; Y93.89 Activity, other specified; Y92.89 Other specified places as the place of occurrence of the external cause; Y99.8 Other external cause status
CPT/HCPCS: 20611; 36415; 71045; 73090; 73201; 76881; 80048; 80061; 80202; 82962; 83036; 83605; 83880; 84145; 84439; 84443; 84484; 85027; 88305; 93005; 99285; C1893; J1815; J2060; J2250; J2270; J2405; J2543; J3010; J3370; J3480; J3490; J7030; J7050; J7060; Q9967; A4315